=== PATIENT | female | born 1995 | race African-American/Black ===

== ENCOUNTER 2022-05-26 12:31 | Inpatient (IN) ==
[2022-05-26 13:07] LABS: Mucus,Urine Occasional /LPF (Occasional); RBC,Urine 4 /HPF (0-4); Squamous Epithelial Cell,Urine Occasional /HPF (0-10)
[2022-05-26 13:09] LABS: Bilirubin,Urine Negative (Negative); Blood, Urine Moderate mg/dL (Negative); Glucose,Urine (UA) Negative (Negative); Ketones,Urine 15 mg/dL (Negative); Nitrite,Urine Negative (Negative); Protein,Urine Negative (Negative); Urine Appearance Clear (Clear); Urine Color Yellow (Yellow); Urine pH 8.5 (4.5-8.0)
[2022-05-26 13:10] LABS: Urine Urobilinogen 0.2 eU/dL (<2.0)
[2022-05-26] MEDS: LACTATED RINGERS 1,000 ML IV SCH (13:27)
[2022-05-26] MEDS ORDERED: miSOPROStoL 200 MCG TABLET RECTAL PRN (13:32)
[2022-05-26] MEDS ORDERED: CARBOPROST TROMETHAMINE 250 MCG/ML AMP IM PRN (13:32)
[2022-05-26] MEDS ORDERED: oxyCODONE/ACETAMINOPHEN 5-325 MG TABLET PO PRN (13:32)
[2022-05-26] MEDS ORDERED: ACETAMINOPHEN 325 MG TABLET PO PRN (13:32)
[2022-05-26] MEDS ORDERED: LACTATED RINGERS 500 ML IV PRN (13:32)
[2022-05-26] MEDS ORDERED: METHYLERGONOVINE 0.2 MG/1 ML AMP IM PRN (13:32)
[2022-05-26] MEDS ORDERED: ONDANSETRON 4 MG/2 ML VIAL IV PRN (13:32)
[2022-05-26] MEDS ORDERED: OXYTOCIN/LR 20 UNIT/1,000 ML BAG IV ONE (13:32)
[2022-05-26] MEDS ORDERED: TRANEXAMIC ACID 1,000 MG in SODIUM CHLORIDE 0.9% 100 ML IV PRN (13:32)
[2022-05-26] MEDS: ceFAZolin 2,000 MG/50 ML DUPLEX IV SCH ×2 (14:06→21:42)
[2022-05-26 14:12] LABS: Basophils % 0.2 % (0.0-0.8); Eosinophils # 0.1 10*3/uL (0.0-0.87); Eosinophils % 0.9 % (0.00-10.9); Hematocrit 36.3 VOL% (35.7-47.0); Hemoglobin 12.1 GM/DL (12.0-16.0); Immature Granulocytes % 0.4 %; Immature Granulocytes Absolute 0.05 #; Lymphocytes # 1.9 10*3/uL (1.4-4.0); Lymphocytes % 16.4 % (21.3-54.2); Mean Corpuscular HGB Conc 33.3 GM/DL (32-36); Mean Platelet Volume 10.1 FL (9.6-12.0); Monocytes # 0.7 10*3/uL (0.11-0.8); Monocytes % 6.3 % (1.7-12.7); Neutrophils % 75.8 % (38.7-73.9); Platelet Count 381 T/CUMM (130-400); Red Blood Count 3.99 MC/CUMM (3.8-5.5); Red Cell Distribution Width 13.2 % (9.3-17.3); White Blood Count 11.49 T/CUMM (4-12)
[2022-05-26 14:28] LABS: Albumin 2.9 G/DL (3.4-5.0); Bilirubin,Total 0.4 MG/DL (0.20-1.00); Calcium 9.1 MG/DL (8.5-10.1); Osmolality,Calculated 272.5 MOS/KG (273-304); Potassium 3.7 MMOL/L (3.5-5.1); Total Protein 7.4 G/DL (6.4-8.2)
[2022-05-26] MEDS: MEPERIDINE 50 MG/1 ML VIAL IV PRN (21:35)
[2022-05-27] MEDS ORDERED: BUTORPHANOL 1 MG/ML VIAL IV PRN (00:05)
[2022-05-27] MEDS: LACTATED RINGERS 1,000 ML IV SCH (01:02)
[2022-05-27] MEDS: MEPERIDINE 50 MG/1 ML VIAL IV PRN (03:06)
[2022-05-27] MEDS ORDERED: SODIUM CHLORIDE 0.9% 0 ML IV ONE (03:29)
[2022-05-27] MEDS ORDERED: CARBOPROST TROMETHAMINE 250 MCG/ML AMP IM ONE (03:29)
[2022-05-27] MEDS ORDERED: miSOPROStoL 200 MCG TABLET ONE (03:29)
[2022-05-27] MEDS ORDERED: OXYTOCIN/LR 30 UNIT/1,000 ML BAG IV ONE (03:29)
[2022-05-27] MEDS ORDERED: METHYLERGONOVINE 0.2 MG/1 ML AMP ONE (03:29)
[2022-05-27] MEDS ORDERED: OXYTOCIN/LR 20 UNIT/1,000 ML BAG IV ONE ×2 (03:29→05:08)
[2022-05-27] MEDS ORDERED: TRANEXAMIC ACID 1,000 MG/10 ML VIAL ONE (03:29)
[2022-05-27] MEDS ORDERED: DIPH/TET/ACEL PERT BOOSTER VACCINE 0.5 ML VIAL IM ONE (05:08)
[2022-05-27] MEDS ORDERED: BENZOCAINE 20%/MENTHOL 0.5% SPRAY 56 GM CAN TOP PRN (05:08)
[2022-05-27] MEDS ORDERED: LANOLIN 50% CREAM 0.3 OZ TUBE TOP PRN (05:08)
[2022-05-27] MEDS ORDERED: oxyCODONE/ACETAMINOPHEN 5-325 MG TABLET PO PRN ×2 (05:08)
[2022-05-27] MEDS ORDERED: BISACODYL 10 MG SUPP RECTAL PRN (05:08)
[2022-05-27] MEDS ORDERED: RHO(D) IMMUNE GLOBULIN 300 MCG SYRINGE IM ONE (05:08)
[2022-05-27] MEDS ORDERED: MEASLES/MUMPS/RUBELLA VACCINE 0.5 ML VIAL SUBCUT ONE (05:08)
[2022-05-27] MEDS ORDERED: HYDROCORTISONE 2.5% RECTAL CREAM 30 GM TUBE TOP PRN (05:08)
[2022-05-27] MEDS ORDERED: WITCH HAZEL PADS 100/JAR TOP PRN (05:08)
[2022-05-27] MEDS ORDERED: ACETAMINOPHEN 325 MG TABLET PO PRN (05:08)
[2022-05-27] MEDS ORDERED: ONDANSETRON 4 MG/2 ML VIAL IV PRN (05:08)
[2022-05-27] MEDS ORDERED: IBUPROFEN 800 MG TABLET PO PRN (05:08)
[2022-05-27] MEDS ORDERED: diphenhydrAMINE CAP 25 MG CAPSULE PO PRN (11:30)
[2022-05-27] MEDS ORDERED: methylPREDNISolone SOD SUC 40 MG/1 ML VIAL IV ONE (15:08)
[2022-05-27] MEDS: hydrOXYzine HCL 25 MG TABLET PO SCH ×2 (17:23→20:38)
[2022-05-27] MEDS ORDERED: FLUCONAZOLE 100 MG TABLET PO ONE (18:08)
[2022-05-27] MEDS: DOCUSATE SODIUM 100 MG CAPSULE PO SCH (23:08)
[2022-05-28 03:30] LABS: Basophils % 0.2 % (0.0-0.8); Eosinophils % 0.1 % (0.00-10.9); Hematocrit 32.7 VOL% (35.7-47.0); Hemoglobin 10.7 GM/DL (12.0-16.0); Immature Granulocytes % 0.5 %; Immature Granulocytes Absolute 0.06 #; Lymphocytes # 1.2 10*3/uL (1.4-4.0); Lymphocytes % 8.9 % (21.3-54.2); Mean Corpuscular HGB Conc 32.7 GM/DL (32-36); Mean Corpuscular Volume 92.6 FL (87-102); Monocytes # 0.4 10*3/uL (0.11-0.8); Monocytes % 2.9 % (1.7-12.7); Neutrophils % 87.4 % (38.7-73.9); Platelet Count 372 T/CUMM (130-400); Red Blood Count 3.53 MC/CUMM (3.8-5.5); Red Cell Distribution Width 13.3 % (9.3-17.3)
[2022-05-28 07:13] VITALS: BP 121/56
[2022-05-28] MEDS: hydrOXYzine HCL 25 MG TABLET PO SCH (08:56)
[2022-05-28] MEDS: DOCUSATE SODIUM 100 MG CAPSULE PO SCH (08:56)
== END 2022-05-28 14:10 | disposition home or self-care (01) | DRG 560 ==
LOC: N.LDOUT 12:31 → N.LD 12:35 → N.OB 05-27 10:39
PROVIDERS: ADMIT Obstetrics & Gynecology; ATTEND Obstetrics & Gynecology